=== PATIENT | male | born 1980 | race African-American/Black ===

== ENCOUNTER 2018-03-29 10:33 | Emergency (ER) | payer OTHER ==
[2018-03-29] MEDS: ONDANSETRON (ODT) 4 MG TAB ODT (11:18)
[2018-03-29] MEDS: METOCLOPRAMIDE 10 MG TAB PO (11:19)
== END 2018-03-29 11:22 | disposition home or self-care (01) ==
LOC: FTE 10:33
DX: R19.6 Halitosis (principal)
CPT/HCPCS: 99283; Z7502